=== PATIENT | male | born 1975 | race Caucasian/White ===

== ENCOUNTER 2024-02-01 04:47 | Emergency (ER) | payer BC, SELFPAY ==
[2024-02-01] VITALS (7 sets, daily range): BP systolic 151–189; BP diastolic 85–108; PULSE 80–91; RESP 18; TEMP 36.3; O2SAT 93–97; BMI 38.7
--- NOTE | 2024-02-01 05:18 | ED.CHESTPAIN ---
HPI - Chest Pain General Time Seen by Provider: 05:18 Date Seen: 02/01/24 Chief Complaint: Chest Pain Stated Complaint: Having pressure on his chest Time Seen by Provider: 02/01/24 05:17 Source: patient and RN notes reviewed Mode of arrival: ambulatory Limitations: no limitations History of Present Illness HPI narrative: Patient is a 48-year-old male coming in with chest symptoms. He states it is not even really a pain but more of a discomfort maybe a pressure feeling. It is not that severe, states he feels like he just needs to burp, feels like he has gas. He is having no abdominal pain with this. He was up to go to the bathroom, noted the symptoms about 4:15 a.m.. Nursing triage states that symptoms awoke patient but he is adamant to me that he was up to go to the bathroom and then noticed the symptoms. He tells me that he does not feel that the symptoms awakened him. He does not feel short of breath. He has had some issue with a post inflammatory or post infectious cough, he still has a bit of a cough from this, has plagued him for a couple of months. He sees Dr. Dickinson and has been evaluated for this. He is on a small blood pressure pill for hypertension. Denies any noted history of hyperlipidemia. He does not feel any nausea with this. He has no prior cardiac history. His dad had a heart attack at age 59, was supposed to be undergoing a CABG but had a heart attack on the table per report of the patient. He feels the symptoms throughout his whole chest. Patient has had no travel. Endorses alcohol use during the day yesterday and over the 4th at his [id number]. complaint: chest discomfort Prior episodes: No Onset: during rest Related Data Previous Rx's ?Medication ?Instructions ?Recorded benzonatate 200 mg capsule 200 mg PO BID-TID PRN cough #14 08/02/23 caps metformin 500 mg tablet,extended 500 mg PO DAILY #30 tabs 02/01/24 release 24 hr Allergies Allergy/AdvReac Type Severity Reaction Status Date / Time No Known Drug Allergies Allergy Verified 08/02/23 12:21 Review of Systems Status of ROS Reports: 6 or more systems reviewed and unremarkable except as noted in History and below [facility] Medical History (Updated 02/01/24 @ 06:42 by Courtney Fuentes MD) Hypertension ?I10 - Essential (primary) hypertension (ICD-10) Social History Smoking Status: Never smoker Non-prescribed substance use: denies use Exam Const Vital Signs, click to edit/add: Vital Signs - 24 hr 02/01/24 04:51 02/01/24 05:10 02/01/24 05:10 Temperature 97.3 F L Pulse Rate 87 Pulse Rate [Left Pulse Oximeter] 91 Respiratory Rate 18 Blood Pressure Blood Pressure [Right Upper Arm] 189/108 H Pulse Oximetry 97 97 95 Oxygen Delivery Method Room Air 02/01/24 05:15 02/01/24 05:30 02/01/24 05:32 Temperature Pulse Rate 83 85 82 Pulse Rate [Left Pulse Oximeter] Respiratory Rate Blood Pressure 163/98 H 162/90 H Blood Pressure [Right Upper Arm] Pulse Oximetry 94 96 95 Oxygen Delivery Method 02/01/24 06:00 02/01/24 06:02 Temperature Pulse Rate 80 86 Pulse Rate [Left Pulse Oximeter] Respiratory Rate Blood Pressure 151/85 H Blood Pressure [Right Upper Arm] Pulse Oximetry 96 93 Oxygen Delivery Method This 48-year-old male is seen in exam room 3, he is alert, interactive, no apparent distress. Patient is obese. He is able to speak in complete sentences, sclera clear, conjugate gaze. Symmetrical facial function. Neck is quite thick, there is no adenopathy or masses, do not appreciate jugular venous distension. Lungs are clear, good air entry, no wheezing or crackles, no tachypnea or accessory muscle use. CV regular rate and rhythm, no murmur, normal S1-S2, no S3-S4. No appreciable chest wall tenderness, this does not reproduce his pain. Abdomen is obese but soft, nontender, no organomegaly or masses noted. Has no lower extremity edema. No calf tenderness. Documenting provider has reviewed patient's vital signs: yes Course Course ED Course: Reviewed with patient that he is a 48-year-old male with hypertension, do need to consider that this is cardiac. Will have him maintained on pulse oximetry and cardiac monitoring. Will give him 324 mg aspirin. Will be obtaining point of care troponin. Nursing staff has already obtained arrival EKG in there is no definitive ischemia on that. Will get a portable chest x-ray. Consider cardiopulmonary causes, GI causes. Will be getting a D-dimer, patient is blood pressure is elevated. His pain is really not that severe and seems more mild, he states he would not even call it a pain. Reevaluation(s) Time of Reevaluation #1: 06:15 Reevaluation #1: Did review the initial normal troponin, subsequent troponin and EKG should be done at 7:15 a.m. to complete a 3 hour evaluation. Patient notes his symptoms have completely resolved. We did review that his glucose is 315 this morning. Unfortunately, the chemistry analyzer is partially down and a hemoglobin A1c cannot be run here at this time. Have reviewed with him with a glucose of 315 that is fasting, he most definitely would be considered diabetic does need hemoglobin A1c done. We discussed initiation of metformin over the weekend and follow up with his primary care next week. We did review that diabetes does put him at increased risk for cardiac and vascular disease in general. It is likely that this chest pressure may not be cardiac in nature given that it has resolved in is a normal troponin but will confirm a 2nd follow-up 1 to be negative peer Vital Signs Vital signs: Initial Vital Signs Temperature 97.3 F L 02/01/24 04:51 Temperature Source Temporal Artery Scan 02/01/24 04:51 Pulse Rate 91 02/01/24 04:51 Pulse Rhythm Regular 02/01/24 04:51 Respiratory Rate 18 02/01/24 04:51 Respiratory Effort Normal, Spontaneous, Non-Labored 02/01/24 04:51 Respiratory Depth Normal 02/01/24 04:51 Respiratory Pattern Normal 02/01/24 04:51 Blood Pressure 189/108 H 02/01/24 04:51 Blood Pressure Mean 135 H 02/01/24 04:51 Blood Pressure Position Sitting 02/01/24 04:51 Pulse Oximetry 97 02/01/24 04:51 Oxygen Delivery Method Room Air 02/01/24 04:51 Vital Signs Temperature 97.3 F L 02/01/24 04:51 Pulse Rate 91 02/01/24 04:51 Respiratory Rate 18 02/01/24 04:51 Blood Pressure 189/108 H 02/01/24 04:51 Pulse Oximetry 97 02/01/24 04:51 Oxygen Delivery Method Room Air 02/01/24 04:51 Temperature 97.3 F L 02/01/24 04:51 Pulse Rate 86 02/01/24 06:02 Respiratory Rate 18 02/01/24 04:51 Blood Pressure 151/85 H 02/01/24 06:02 Pulse Oximetry 93 02/01/24 06:02 Oxygen Delivery Method Room Air 02/01/24 04:51 Medications Administered Medications: Discontinued Medications Generic Name Dose Route Start Last Admin Trade Name Brittany PRN Reason Stop Dose Admin Aspirin 324 mg 02/01/24 05:28 02/01/24 05:30 Aspirin 81 Mg Tab.Chew PO 02/01/24 05:29 324 mg ONCE ONE Administration MDM - Chest Pain Lab Data Attestation: I reviewed the patient's lab results. Labs: Lab Results 02/01/24 02/01/24 02/01/24 Range/Units 05:15 05:19 07:15 WBC 6.49 (4.50-11.00) K/uL RBC 4.71 (4.30-5.90) m/uL Hgb 14.0 (13.5-17.5) gm/dL Hct 41.7 (37.0-53.0) % MCV 89 (80-100) fL MCH 30 (26-34) pg MCHC 34 (32-36) gm/dL RDW Coeff of Virgilio 12.8 (11.5-15.5) % Plt Count 199 (140-440) K/uL Neut % (Auto) 55.0 (42.0-72.0) % Lymph % (Auto) 27.9 (20-44) % [place] % (Auto) 10.0 (0.0-11.0) % Eos % (Auto) 6.2 (0.0-7.0) % Baso % (Auto) 0.6 (0.0-3.0) % Neut # (Auto) 3.57 (1.7-7.0) K/uL Lymph # (Auto) 1.81 (0.90-2.90) K/uL [place] # (Auto) 0.60 (0.00-0.90) K/UL Eos # (Auto) 0.40 (0.00-0.50) K/uL Baso # (Auto) 0.04 (0.00-0.30) K/uL Abs Immat Gran (auto) 0.02 (0.00-0.30) K/uL Imm/Tot Granulo (auto) 0.3 % Sodium 136 (135-149) mmol/L Potassium 3.8 (3.6-5.1) mmol/L Chloride 104 (96-114) mmol/L Carbon Dioxide 24 (20-32) mmol/L Anion Gap 8 (7-15) mEq/L BUN 18 (5-24) mg/dL Creatinine 0.8 (0.5-1.5) mg/dL Estimated Creat Clear 133.50 Estimated GFR 108 ml/min Glucose 315 H (60-115) mg/dL Lactate 2.2 H (0.5-1.9) mmol/L Calcium 8.8 (8.4-10.6) mg/dL Total Bilirubin 0.5 (0.1-1.5) mg/dL AST 31 (12-35) U/L ALT 40 (4-50) U/L Alkaline Phosphatase 113 (40-150) U/L Total Protein 7.6 (6.0-8.3) g/dL Albumin 4.4 (3.3-5.0) g/dL Lipase 53 (23-300) U/L POC Troponin I 0.00 L 0.01 (0.01-0.04) ng/ml Imaging Data Chest x-ray: Attestation: I have reviewed the pertinent imaging results. Radiologist's impression: Patient: MOSHE TREVINO Facility:?[facility] Patient ID:?[id number] Site Patient ID:?[id number]. Site :?[id number] Study:?XRay-Chest ap portable-02/01/2024 6:03:34 AM Ordering Physician:?Alfredo Valdez Final Report: INDICATION: Chest discomfort TECHNIQUE: 1 view chest radiograph COMPARISON: None. FINDINGS: Lung volumes are good. No focal or diffuse opacities. No pleural effusion. No pneumothorax. Heart size is normal. IMPRESSION: Normal chest radiograph. Dictated by Rachel Bush MD @ 02/01/2024 6:10:44 AM (Electronic Signature) ECG Data Attestation: I personally reviewed and interpreted this ECG as follows: (Sinus rhythm with first-degree AV block, 89 beats per minute. QT corrected 484 milliseconds. No evidence of any ischemia or infarct. Low voltage lead 3.) ECG interpretation date: 02/01/24 ECG interpretation time: 05:17 Prior ECG tracings: not available for review Interpretation: EKG from 7:13 a.m. showing normal sinus rhythm, 79 beats per minute. No ischemia, no infarct. Discharge Plan Discharge Clinical Impression: Chest pressure Type 2 diabetes mellitus Qualifiers: Diabetes mellitus nursing home insulin use: without nursing home use Diabetes mellitus complication status: without complication Qualified Code(s): E11.9 - Type 2 diabetes mellitus without complications Instructions: Chest Pain (ED), Type 2 Diabetes in Adults: New Diagnosis (DC), Diabetes and Nutrition (ED), Diabetes and Exercise (ED), Type 2 Diabetes Management for Adults (ED) Additional Instructions: We will initiate metformin. The dose will need to be increased over time, this medicine needs to be worked up to appropriate does otherwise patients can get significant side effects from it. You will need to get scheduled for a follow-up clinic appointment next week, they will need to do a hemoglobin A1c blood test. I would recommend going to that visit fasting, no food or drink besides water after midnight so that glucose can be were checked, cholesterol panel can be done if it is due. You also need to talk about the episode of chest symptoms. I would recommend that they consider obtaining cardiac stress testing. Prescriptions: New metformin 500 mg tablet extended release 24 hr 500 mg PO DAILY Qty: 30 0RF No Action benzonatate 200 mg capsule 200 mg PO BID-TID PRN (Reason: cough) Qty: 14 0RF Follow Up/Referrals: Dale Dickinson MD [Primary Care Provider] -
--- NOTE | 2024-02-01 05:29 | CRLHL7_ITS ---
For Patients: As a result of the Century Cures Act, medical imaging exams and procedure reports are released immediately into your electronic medical record. You may view this report before your referring provider. If you have questions, please contact your health care provider. INDICATION: Chest discomfort TECHNIQUE: 1 view chest radiograph COMPARISON: None. FINDINGS: Lung volumes are good. No focal or diffuse opacities. No pleural effusion. No pneumothorax. Heart size is normal. IMPRESSION: Normal chest radiograph. Dictated by Rachel Bush MD @ 02/01/2024 6:10:44 AM (Electronically Signed)
[2024-02-01] MEDS: ASPIRIN 81 MG TAB.CHEW 324 MG PO (05:30)
[2024-02-01 05:31] LABS: Lactate* 2.2 mmol/L (0.5-1.9)
[2024-02-01 05:33] LABS: Basophils Absolute Auto 0.04 K/uL (0.00-0.30); Basophils Percent Auto 0.6 % (0.0-3.0); Eosinophils Percent Auto 6.2 % (0.0-7.0); Hematocrit 41.7 % (37.0-53.0); Immature Granulocytes Abs Auto 0.02 K/uL (0.00-0.30); Immature Granulocytes Pct Auto 0.3 %; Lymphocytes Absolute Auto 1.81 K/uL (0.90-2.90); Lymphocytes Percent Auto 27.9 % (20-44); Mean Corpuscular HGB Conc 34 gm/dL (32-36); Mean Corpuscular Hemoglobin 30 pg (26-34); Mean Corpuscular Volume 89 fL (80-100); Neutrophils Absolute Auto 3.57 K/uL (1.7-7.0); Platelet Count* 199 K/uL (140-440); RDW Coefficient of Variation % 12.8 % (11.5-15.5); Red Blood Count 4.71 m/uL (4.30-5.90); White Blood Count* 6.49 K/uL (4.50-11.00)
[2024-02-01 05:34] LABS: Slide Review Reflex No
[2024-02-01 06:01] LABS: Albumin* 4.4 g/dL (3.3-5.0); Chloride* 104 mmol/L (96-114)
[2024-02-01 06:02] LABS: Potassium* 3.8 mmol/L (3.6-5.1); Sodium* 136 mmol/L (135-149)
[2024-02-01 06:04] LABS: Alkaline Phosphatase* 113 U/L (40-150); Anion Gap 8 mEq/L (7-15); Aspartate Amino Transferase* 31 U/L (12-35); Bilirubin Total* 0.5 mg/dL (0.1-1.5); Blood Urea Nitrogen* 18 mg/dL (5-24); Carbon Dioxide* 24 mmol/L (20-32); Creatinine* 0.8 mg/dL (0.5-1.5); Estimated Glomerular Filt Rate 108 ml/min; Glucose* 315 mg/dL (60-115); Total Protein* 7.6 g/dL (6.0-8.3)
[2024-02-01 06:05] LABS: Alanine Aminotransferase* 40 U/L (4-50); Calcium* 8.8 mg/dL (8.4-10.6); Lipase* 53 U/L (23-300)
[2024-02-01 07:50] LABS: Troponin, Point-of-Care* 0.01 ng/ml (0.01-0.04)
[2024-02-01 22:22] LABS: D Dimer Quantitative* 1.97 ug/ml (0.00-0.50)
== END 2024-02-01 08:02 | disposition other institution (70) ==
LOC: ED 05:41
PROVIDERS: Emergency Provider Family Medicine; PCP Family Medicine
DX: I20.0 Unstable angina (principal); E11.9 Type 2 diabetes mellitus without complications
CPT/HCPCS: 36415; 71045; 80053; 83605; 83690; 84484; 85025; 85379; 93005; 94761; 99284; 99285; A9270

== ENCOUNTER 2024-02-02 08:55 | Emergency (ER) | payer BC, SELFPAY ==
[2024-02-02 09:00] VITALS: BP 177/106; PULSE 94; RESP 20; TEMP 36.7; O2SAT 96; BMI 38.7
--- NOTE | 2024-02-02 09:05 | CRLHL7_ITS ---
For Patients: As a result of the 21st Century Cures Act, medical imaging exams and procedure reports are released immediately into your electronic medical record. You may view this report before your referring provider. If you have questions, please contact your health care provider. INDICATION: Chest pain yesterday, elevated D-dimer, shortness of breath and cough for 1 month.. COMPARISON: Radiographs 02/01/2024 TECHNIQUE: CT angiogram chest with contrast, pulmonary embolism protocol. Multiplanar axial, coronal, and sagittal reformats are included. MIP images to improve detection of pulmonary emboli are included. Intravenous contrast: 100 mL Isovue 370. FINDINGS: PE: Suboptimal contrast bolus timing. Only the central through proximal segmental pulmonary arteries are well opacified enough to evaluate for emboli. Most of the contrast is still in the left arm and SVC. No pulmonary emboli seen. Normal caliber main pulmonary artery. Normal sized right heart chambers. No reflux of contrast below the diaphragm. Airway: Expiratory appearance of the trachea. Lungs: Moderate lung volumes. No nodules or masses. No consolidations. Normal appearance of the pulmonary interstitium. Pleura: No pleural effusion. No pneumothorax. Lymph nodes: No thoracic adenopathy. Mediastinum: No pneumomediastinum. No mass. Heart and great vessels: No pericardial effusion. Normal cardiac chamber size. No atherosclerotic plaques. No aortic aneurysm. Chest wall: Normal. No masses. Upper abdomen: Moderate to severe diffuse hepatic steatosis. Bones: No fractures. No focal bone lesions. IMPRESSION: 1. Suboptimal bolus timing, probably due to Valsalva maneuver at the time of the exam. No central pulmonary embolus. No secondary findings of right heart strain or pulmonary infarct. 2. Normal CT appearance of the lungs. 3. Moderate to severe diffuse hepatic steatosis. Please note that all CT scans at this facility use dose modulation, iterative reconstruction, and/or weight-based dosing when appropriate to reduce radiation dose to as low as reasonably achievable. Dictated by Rachel Bush MD @ 02/02/2024 9:54:14 AM (Electronically Signed)
--- NOTE | 2024-02-02 09:34 | CRLHL7_ITS ---
For Patients: As a result of the Century Cures Act, medical imaging exams and procedure reports are released immediately into your electronic medical record. You may view this report before your referring provider. If you have questions, please contact your health care provider. INDICATION: Elevated D-dimer with chest pain yesterday COMPARISON: None. TECHNIQUE: Wright-scale, color, and duplex Doppler imaging of the bilateral lower extremity veins. Compression and augmentation attempted where anatomically and clinically feasible. FINDINGS: Laterality: Bilateral Examined veins: Common femoral, femoral, popliteal, peroneal, posterior tibial Proximal greater saphenous The examined veins are patent with normal grayscale appearance and normal compressibility where anatomically feasible. Normal color Doppler flow. Normal venous waveforms on duplex Doppler ultrasound with normal augmentation. IMPRESSION: No deep vein thrombosis in either lower extremity. Dictated by Rachel Bush MD @ 02/02/2024 10:33:06 AM (Electronically Signed)
[2024-02-02 09:37] LABS: Hemoglobin A1C* 9.8 % (0-5.6)
[2024-02-02 09:47] LABS: Glucose* 327 mg/dL (60-115)
--- NOTE | 2024-02-02 10:06 | ED.GENADULT ---
HPI - General Adult General Date Seen: 02/02/24 Chief complaint: Unspecified Complaint, Adult Stated complaint: asked to come back by Dr. Fisher Time Seen by Provider: 02/02/24 09:05 Source: patient and RN notes reviewed Mode of arrival: ambulatory Limitations: no limitations History of Present Illness HPI narrative: Patient presents back to the ER today at my request. I called and left a message at 8:28 a.m. on his cellphone, he talk to nursing staff at 8:41 a.m. and was on his way back. He was in yesterday morning or early for chest discomfort that had resolved. His troponins were normal. I unfortunately thought that all of his labs were back and were normal. I had done a D-dimer and this did not come back during the time frame while the patient was here or during my shift here. When I came to work today, there was his D-dimer result in my work list which was elevated at 1.97. This was explained to the patient, this is my error for missing this pending lab yesterday. Patient was notably pain-free at his time of discharge. He denies any pain to me in the interim since he was discharged. He was diagnosed with new type 2 diabetes yesterday during her visit. He did start on the metformin, ordered 500 mg XL daily. The pharmacy is still out of his blood pressure medicine, he has been out of it for few days now, he states that he is working with them to get this refilled. He is not short of breath, has had no calf pain or swelling. We did review the D-dimer, this can be a nonspecific inflammatory marker but certainly can go up in vascular disease and blood clotting. Related Data Previous Rx's ?Medication ?Instructions ?Recorded benzonatate 200 mg capsule 200 mg PO BID-TID PRN cough #14 08/02/23 caps metformin 500 mg tablet,extended 500 mg PO DAILY #30 tabs 02/01/24 release 24 hr Allergies Allergy/AdvReac Type Severity Reaction Status Date / Time No Known Drug Allergies Allergy Verified 08/02/23 12:21 Review of Systems Status of ROS: Reports: 6 or more systems reviewed and unremarkable except as noted in History and below [facility] Medical History Hypertension ?I10 - Essential (primary) hypertension (ICD-10) Social History Smoking Status: Never smoker Do you use any of these nicotine containing products: None Second hand tobacco smoke exposure: No How often do you have a drink containing alcohol: never How often do you have six or more drinks on one occasion: Never AUDIT-C Alcohol total score: 0 Non-prescribed substance use: denies use service: No Exam Const: Vital Signs, click to edit/add: Vital Signs - 24 hr 02/02/24 09:00 Temperature 98.1 F Pulse Rate [Pulse Oximeter] 94 Respiratory Rate 20 Blood Pressure [Ri ght Forearm] 177/106 H Pulse Oximetry 96 Oxygen Delivery Me thod Room Air 48-year-old male obese patient that is alert, interactive, no apparent distress. Ambulatory into the ED of his own accord. Neck thick. CV regular rate and rhythm no murmur. Breathing easy on room air, lungs are clear. He has no lower extremity edema, calves are nontender. Documenting provider has reviewed patient's vital signs: yes Course Course ED Course: Patient needs chest CT PE protocol, will also look at his lower extremities just to ensure no DVT. We certainly do see plenty of patients who have asymptomatic DVTs. Will get hemoglobin A1c as labs able to do this today, recheck his glucose. I will do follow-up troponin on him as we are drawing blood. Reevaluation(s) Time of Reevaluation #1: 10:55 Reevaluation #1: Reviewed with patient that there is no DVT or pulmonary embolus seen. Did review his hemoglobin A1c at 9.8%. Did also review that his troponin today has come back elevated at 0.08. He admits that he may be does have a little left-sided chest symptoms that he had yesterday. Initially he told me that he had no recurrent symptoms. He has maybe feeling something. He did not take any aspirin today. He also admits that the pharmacy is been out of his blood pressure medicine despite him calling in for a refill in appropriate time. He will be getting a follow-up EKG. I will talk to Cardiology. Besides updating patient's aspirin, I will have nursing staff try sublingual nitroglycerin to see if it reduces his left chest symptoms. Time of Reevaluation #2: 12:08 Reevaluation #2: Have reviewed with patient my discussion with Cardiology. Plan will be to go to [facility]. Have reviewed heparin, did go over risk benefits and contraindications. We will proceed with ACS heparin protocol. He has no chest pain at this time. He did not get the sublingual nitroglycerin but chest pain resolved at this time. He has had the aspirin. Time of Reevaluation #3: 14:39 Reevaluation #3: Patient remains asymptomatic. We are waiting bed placement at [facility]. He is on his heparin drip. Consultations Consultation #1: Spoke with Dr. Tijerina occupational health nurse supervisor from [facility]. They unfortunately do not have beds but there may be possibility of transfer to [facility]. He does think that this patient represents unstable angina. He agrees with transfer, recommends IV heparin be initiated. Patient may need noninvasive verses angiogram visualization of the coronary arteries depending on his troponin monitoring and symptoms. Will need to speak to [facility] hospitalist. 11:56 a.m.: Did speak with Dr. Carrasco hospitalist at [facility]. He does accept. There may be up to an 8 hour bed delay, will depend on their discharges there. Time: 11:41 Vital Signs Vital signs: Initial Vital Signs Temperature 98.1 F 02/02/24 09:00 Temperature Source Temporal Artery Scan 02/02/24 09:00 Pulse Rate 94 02/02/24 09:00 Pulse Rhythm Regular 02/02/24 09:00 Respiratory Rate 20 02/02/24 09:00 Blood Pressure 177/106 H 02/02/24 09:00 Blood Pressure Mean 129 H 02/02/24 09:00 Blood Pressure Position Supine 02/02/24 09:00 Pulse Oximetry 96 02/02/24 09:00 Oxygen Delivery Method Room Air 02/02/24 09:00 Vital Signs Temperature 98.1 F 02/02/24 09:00 Pulse Rate 94 02/02/24 09:00 Respiratory Rate 20 02/02/24 09:00 Blood Pressure 177/106 H 02/02/24 09:00 Pulse Oximetry 96 02/02/24 09:00 Oxygen Delivery Method Room Air 02/02/24 09:00 Temperature 98.1 F 02/02/24 09:00 Pulse Rate 94 02/02/24 09:00 Respiratory Rate 20 02/02/24 09:00 Blood Pressure 177/106 H 07/07/24 09:00 Pulse Oximetry 96 02/02/24 09:00 Oxygen Delivery Method Room Air 02/02/24 09:00 Medications Administered Medications: Discontinued Medications Generic Name Dose Route Start Last Admin Trade Name Brittany PRN Reason Stop Dose Admin Aspirin 324 mg 02/02/24 11:04 02/02/24 11:07 Aspirin 81 Mg Tab.Chew PO 02/02/24 11:05 324 mg ONCE ONE Administration Heparin Sodium (Porcine) 4,000 unit 02/02/24 12:01 02/02/24 12:17 Heparin 5,000 Unit/0.5 Ml Inj IVP 02/02/24 12:02 4,000 unit ONCE ONE Administration Heparin Sodium/Dextrose 25,000 unit in 500 mls @ 0 mls/hr 02/02/24 12:15 02/02/24 12:19 Heparin IV 1,000 unit/hr .Q0M ALEISHA 20 mls/hr Administration Protocol Per Protocol Medical Decision Making Lab Data Lab results reviewed: Yes I reviewed the patient's lab results Labs: Lab Results 02/02/24 Range/Units 09:15 WBC 6.00 (4.50-11.00) K/uL RBC 4.68 (4.30-5.90) m/uL Hgb 14.0 (13.5-17.5) gm/dL Hct 41.2 (37.0-53.0) % MCV 88 (80-100) fL MCH 30 (26-34) pg MCHC 34 (32-36) gm/dL Plt Count 183 (140-440) K/uL INR 0.93 (0.91-1.10) APTT 30 (23-33) Seconds Glucose 327 H (60-115) mg/dL Hemoglobin A1c 9.8 H (0-5.6) % Troponin I 0.08 H* (0.01-0.04) ng/mL Imaging Data CT scan - chest: Attestation: I have reviewed the pertinent imaging results. Radiologist's impression: Patient: MOSHE TREVINO Facility:?[facility] Patient ID:?[id number] Site Patient ID:?[id number]. Site :?[id number] Study:?CT-Chest Angio PE w/100cc's Isovue 370-02/02/2024 9:43:43 AM Ordering Physician:Kumar Valdez Final Report: INDICATION: Chest pain yesterday, elevated D-dimer, shortness of breath and cough for 1 month.. COMPARISON: Radiographs 02/01/2024 TECHNIQUE: CT angiogram chest with contrast, pulmonary embolism protocol. Multiplanar axial, coronal, and sagittal reformats are included. MIP images to improve detection of pulmonary emboli are included. Intravenous contrast: 100 mL Isovue 370. FINDINGS: PE: Suboptimal contrast bolus timing. Only the central through proximal segmental pulmonary arteries are well opacified enough to evaluate for emboli. Most of the contrast is still in the left arm and SVC. No pulmonary emboli seen. Normal caliber main pulmonary artery. Normal sized right heart chambers. No reflux of contrast below the diaphragm. Airway: Expiratory appearance of the trachea. Lungs: Moderate lung volumes. No nodules or masses. No consolidations. Normal appearance of the pulmonary interstitium. Pleura: No pleural effusion. No pneumothorax. Lymph nodes: No thoracic adenopathy. Mediastinum: No pneumomediastinum. No mass. Heart and great vessels: No pericardial effusion. Normal cardiac chamber size. No atherosclerotic plaques. No aortic aneurysm. Chest wall: Normal. No masses. Upper abdomen: Moderate to severe diffuse hepatic steatosis. Bones: No fractures. No focal bone lesions. IMPRESSION: 1. Suboptimal bolus timing, probably due to Valsalva maneuver at the time of the exam. No central pulmonary embolus. No secondary findings of right heart strain or pulmonary infarct. 2. Normal CT appearance of the lungs. 3. Moderate to severe diffuse hepatic steatosis. Please note that all CT scans at this facility use dose modulation, iterative reconstruction, and/or weight-based dosing when appropriate to reduce radiation dose to as low as reasonably achievable. Dictated by Rachel Bush MD @ 02/02/2024 9:54:14 AM (Electronic Signature) Venous US: Attestation: I have reviewed the pertinent imaging results. Radiologist's impression: Patient: MOSHE TREVINO Facility:?[facility] Patient ID:?[id number] Site Patient ID:?[id number]. Site :?[id number] Study:?US-Extremity Bilateral LEV-02/02/2024 10:26:24 AM Ordering Physician:Kumar Valdez Final Report: INDICATION: Elevated D-dimer with chest pain yesterday COMPARISON: None. TECHNIQUE: Wright-scale, color, and duplex Doppler imaging of the bilateral lower extremity veins. Compression and augmentation attempted where anatomically and clinically feasible. FINDINGS: Laterality: Bilateral Examined veins: Common femoral, femoral, popliteal, peroneal, posterior tibial Proximal greater saphenous The examined veins are patent with normal grayscale appearance and normal compressibility where anatomically feasible. Normal color Doppler flow. Normal venous waveforms on duplex Doppler ultrasound with normal augmentation. IMPRESSION: No deep vein thrombosis in either lower extremity. Dictated by Rachel Bush MD @ 02/02/2024 10:33:06 AM (Electronic Signature) ECG Data Attestation: I personally reviewed and interpreted this ECG as follows: (Normal sinus rhythm, 84 beats per minute. No definitive acute ischemia or infarct, did compared to EKGs from yesterday.) Prior ECG tracings: available for review Discharge Plan Discharge Clinical Impression: Angina pectoris, unstable Type 2 diabetes mellitus Qualifiers: Diabetes mellitus custodial insulin use: without custodial use Diabetes mellitus complication status: without complication Qualified Code(s): E11.9 - Type 2 diabetes mellitus without complications Patient Disposition: [facility] Discharge Location: [facility] Condition: Stable Additional Instructions: Your diabetic lab the hemoglobin A1c was elevated at 9.8% today, this does not need to be redrawn this week. Please bring this discharge to your follow-up clinic appointment so they know the results of this test. You still should go to that visit fasting as your cholesterol/lipid panel may need updating if it has been over a year.
[2024-02-02 10:25] LABS: Troponin I* 0.08 ng/mL (0.01-0.04)
[2024-02-02] MEDS: ASPIRIN 81 MG TAB.CHEW 324 MG PO (11:07)
[2024-02-02] MEDS: HEPARIN 5,000 UNIT/0.5 ML INJ 4000 UNIT IVP (12:17)
[2024-02-02] MEDS: HEPARIN 25,000 UNIT/500 ML BAG 20 UNIT IV (12:19)
[2024-02-02 12:37] LABS: INR 0.93 (0.91-1.10); Partial Thromboplastin Time* 30 Seconds (23-33)
[2024-02-02 12:40] LABS: Hematocrit 41.2 % (37.0-53.0); Mean Corpuscular HGB Conc 34 gm/dL (32-36); Mean Corpuscular Hemoglobin 30 pg (26-34); Mean Corpuscular Volume 88 fL (80-100); Platelet Count* 183 K/uL (140-440); Red Blood Count 4.68 m/uL (4.30-5.90)
[2024-02-02 12:44] LABS: Slide Review Reflex No
== END 2024-02-02 16:14 | disposition short-term general hospital (02) ==
PROVIDERS: Emergency Provider Family Medicine; PCP Family Medicine
DX: I20.9 Angina pectoris, unspecified (principal); E11.9 Type 2 diabetes mellitus without complications
CPT/HCPCS: 36415; 71275; 82947; 83036; 84484; 85027; 85610; 85730; 93005; 93970; 99284; 99285; A9270; J1644; Q9967

== ENCOUNTER 2024-02-02 16:10 | Outpatient (CLI) | payer BC, SELFPAY | END 2024-02-02 16:11 | disposition home or self-care (01) | LOC: AMB 02-04 17:49 | PROVIDERS: PCP Family Medicine; Visit Provider Emergency Medicine | DX: I20.0 Unstable angina (principal) | CPT/HCPCS: A0425; A0434 ==

== ENCOUNTER 2024-11-20 09:17 | Outpatient (CLI) | payer BC, SELFPAY ==
--- NOTE | 2024-11-20 11:33 | P.ANES_ITS ---
Anesthesia Charges Start Date/Time Anesthesia Start Date: 11/20/24 Anesthesia Start Time: 11:06 Stop Date/Time Anesthesia Stop Date: 11/20/24 Anesthesia Stop Time: 11:29 Coding CPT Codes CPT Codes: ANES LWR INTST NDSC NOS - 69043 ([id number]) P3 - PATIENT W/SEVERE SYS DISEASE, QZ - SALES OPERATIONS ANALYST SVC W/O ELEMENTARY TUTOR BY
--- NOTE | 2024-11-20 11:33 | W.ANESCHARGE ---
Anesthesia Charges Start Date/Time Anesthesia Start Date: 11/20/24 Anesthesia Start Time: 11:06 Stop Date/Time Anesthesia Stop Date: 11/20/24 Anesthesia Stop Time: 11:29 Coding CPT Codes CPT Codes: ANES LWR INTST NDSC NOS - 05806 ([id number]) P3 - PATIENT W/SEVERE SYS DISEASE, QZ - COMPUTER LAB ASSISTANT SVC W/O HYDRAULIC ROCKBREAKER OPERATOR BY
== END 2024-11-20 09:18 | disposition home or self-care (01) ==
LOC: OP CLINIC 09:17
PROVIDERS: PCP Family Medicine; Visit Provider Internal Medicine Gastroenterology
DX: Z12.11 Encounter for screening for malignant neoplasm of colon (principal); D12.3 Benign neoplasm of transverse colon; K57.30 Diverticulosis of large intestine without perforation or abscess without bleeding
CPT/HCPCS: 00811; 00812; 45385; 88305; J2704